=== PATIENT | male | born 1970 | race Caucasian/White ===

== ENCOUNTER 2022-02-28 09:45 | Outpatient (CLI) | payer BC, SELFPAY ==
[2022-02-28 13:56] LABS: Basophils Absolute Auto 0.02 K/uL (0.00-0.30); Basophils Percent Auto 0.3 % (0.0-3.0); Eosinophils Absolute Auto 0.23 K/uL (0.00-0.50); Eosinophils Percent Auto 3.7 % (0.0-7.0); Hematocrit 45.5 % (37.0-53.0); Hemoglobin* 15.2 gm/dL (13.5-17.5); Immature Granulocytes Abs Auto 0.01 K/uL (0.00-0.30); Lymphocytes Absolute Auto 2.22 K/uL (0.90-2.90); Lymphocytes Percent Auto 35.5 % (20-44); Mean Corpuscular HGB Conc 33 gm/dL (32-36); Mean Corpuscular Hemoglobin 30 pg (26-34); Mean Corpuscular Volume 89 fL (80-100); Neutrophils Absolute Auto 3.21 K/uL (1.7-7.0); Neutrophils Percent Auto 51.3 % (42.0-72.0); Platelet Count* 290 K/uL (140-440); RDW Coefficient of Variation % 12.6 % (11.5-15.5); Red Blood Count 5.11 m/uL (4.30-5.90); White Blood Count* 6.25 K/uL (4.50-11.00)
[2022-02-28 14:00] LABS: Slide Review Reflex No
[2022-02-28 14:42] LABS: Chloride* 106 mmol/L (96-114)
[2022-02-28 14:43] LABS: Potassium* 4.6 mmol/L (3.6-5.1); Sodium* 139 mmol/L (135-149)
[2022-02-28 14:45] LABS: Carbon Dioxide* 24 mmol/L (20-32); Cholesterol* 241 mg/dL (90-199); Estimated Glomerular Filt Rate 92 ml/min
[2022-02-28 14:46] LABS: Blood Urea Nitrogen* 14 mg/dL (7-30); Calcium* 9.3 mg/dL (8.4-10.6); Glucose* 101 mg/dL (60-115); HDL Cholesterol* 42 mg/dL (>=40); LDL Cholesterol Calculated 165 mg/dL (<100); Triglycerides* 172 mg/dL (40-149)
[2022-02-28 15:14] LABS: PSA Screen* 1.07 ng/mL (0.10-4.00)
== END 2022-02-28 09:46 | disposition home or self-care (01) ==
PROVIDERS: PCP Family Medicine; Visit Provider Family Medicine
DX: Z00.00 Encounter for general adult medical examination without abnormal findings (principal); R68.81 Early satiety; Z83.79 Family history of other diseases of the digestive system; Z12.5 Encounter for screening for malignant neoplasm of prostate
CPT/HCPCS: 80048; 80061; 83516; 84153; 85025

== ENCOUNTER 2023-05-01 19:28 | Outpatient (CLI) | payer BC, SELFPAY ==
--- NOTE | 2023-05-14 08:14 | W.PM.SLEEP ---
Sleep Study Details Details Interpreting Provider: Carol Ann Date of Sleep Study: 05/01/23 Sleep Study Details: STUDY TYPE:? Home unattended ? BMI:? 29.8 ORDERING PROVIDER:Adriane Hilario INDICATION:? Concerns about sleep apnea ? SLEEP SUMMARY:? 291.5 minutes monitored RESPIRATORY SUMMARY:? AHI 20, supine 41.7, prone 2.5, left lateral 18.4, right lateral 4.1 Low oxygen 85 0.7% of study oxygen less than 90% Snoring 35.1 PERIODIC LIMB MOVEMENTS OF SLEEP:? Not recorded during home study CARDIAC:? Range 48-91, mean 56.1 beats per minute IMPRESSION:? Moderate obstructive sleep apnea worse in the supine and left lateral positions. RECOMMENDATION: Treatment options include CPAP dental appliance and/or airway expansion surgery. It is not clear if positional therapy would be likely be effective.
== END 2023-05-01 19:29 | disposition home or self-care (01) ==
LOC: SLEEP 19:29
PROVIDERS: PCP Family Medicine; Visit Provider Family Medicine
DX: G47.33 Obstructive sleep apnea (adult) (pediatric) (principal)
CPT/HCPCS: 95806